=== PATIENT | male | born 1960 ===

== ENCOUNTER → 2018-07-14 | Outpatient (CLI) | payer BC ==
[~2018-07-14] MED LIST: AMOCLA875 PO; ATEN25 PO; AZIT250 PO; BP MED; LISHYD2012; RISE30 PO; SIMV40 PO
== END | disposition home or self-care (01) ==
LOC: PLD 13:24 → LAB SHORT 13:24
DX: D22.5 Melanocytic nevi of trunk (principal); D22.61 Melanocytic nevi of right upper limb, including shoulder; D22.71 Melanocytic nevi of right lower limb, including hip
CPT/HCPCS: 88305

== ENCOUNTER 2019-06-26 19:23 | Emergency (ER) | payer BC ==
[~2019-06-26] VITALS: Ht 188 cm; Wt 147.4 kg
[~2019-06-26 19:23] MED LIST changes: +Adult Low Dose81 MG PO; +Cialis5 MG; +GLUCOSAMINE &1 EACH PO; +Glucophage1000 MG PO; +Hair, Skin & N1 EACH PO; +LISI20 PO; +TESTOSTERONE INJECTI; +Vitamin B Comple1 EA PO
[2019-06-26 19:44] LABS: BASOPHILS ABSOLUTE AUTO 0.02 K/mm3 (0.00-0.23); BASOPHILS PERCENT AUTO 0 % (0-2); EOSINOPHILS ABSOLUTE AUTO 0.24 K/mm3 (0.00-0.68); EOSINOPHILS PERCENT AUTO 3 % (0-6); Hemoglobin 17.1 g/dL (13.5-17.5); IMMATURE GRAN ABSOLUTE AUTO 0.02 K/mm3 (0.00-0.10); IMMATURE GRAN PERCENT AUTO 0 % (0-1); LYMPHOCYTES ABSOLUTE AUTO 1.37 K/mm3 (0.84-5.20); LYMPHOCYTES PERCENT AUTO 16 % (21-46); MONOCYTES ABSOLUTE AUTO 0.99 K/mm3 (0.16-1.47); MONOCYTES PERCENT AUTO 12 % (4-13); Mean Corpuscular HGB 28.5 pg (26.0-34.0); Mean Corpuscular HGB Conc 32.9 g/dL (31.5-36.5); Mean Corpuscular Volume 87 fL (80-100); NEUTROPHILS ABSOLUTE AUTO 5.73 K/mm3 (1.96-9.15); NEUTROPHILS PERCENT AUTO 69 % (41-73); Platelet Count 289 K/mm3 (150-400); RDW Coefficient Variation 13.2 % (11.7-14.2); RDW Standard Deviation 41.4 fL (35.1-46.3); White Blood Cell Count 8.37 K/mm3 (4.00-11.30)
[2019-06-26 20:02] LABS: Alanine Aminotransfer (ALT/SGP 40 U/L (12-78); Albumin, Blood 4.1 g/dL (3.4-5.0); Albumin/Globulin Ratio 1.2 (0.8-1.8); Alk Phos 58 U/L (50-136); Anion Gap 9 mmol/L (6-16); Aspartate Aminotrans (AST/SGOT 20 U/L (12-37); Bilirubin, Total 0.9 mg/dL (0.1-1.0); Blood Urea Nitrogen 17 mg/dL (8-24); Bun/Creatinine Ratio 14.8 (12.0-20.0); CO2, Blood 28 mmol/L (21-32); Chloride, Blood 106 mmol/L (98-108); Creatinine, Blood 1.15 mg/dL (0.60-1.20); Globulin, Blood 3.4 g/dL (2.2-4.0); Glomerular Filtration Rate >60 (60-); Glucose, Blood 84 mg/dL (70-99); Sodium, Blood 143 mmol/L (136-145); Total Protein, Blood 7.5 g/dL (6.4-8.2)
[2019-06-26 20:06] LABS: Source, Urine Clean Catch
[2019-06-26 20:13] LABS: Bilirubin, Urine Neg (Neg); Blood, Urine 5+ (Neg); Glucose Qualitative, Urine Neg (Neg); Ketones, Urine Neg (Neg); Leukocyte Esterase, Urine 1+ (Neg); Nitrite, Urine Neg (Neg); Protein, Urine 1+ (Neg); Urobilinogen, Urine 1+ (Normal)
[2019-06-26 20:22] LABS: Appearance, Urine Hazy (Clear); Color, Urine Yellow (P-Yellow)
[2019-06-26 20:24] LABS: Bacteria Few /hpf; Red Blood Cells, Urine 50-100 /hpf (0-2); Squamous Epithelial Cells Few /hpf (Few)
[2019-06-26] MEDS ORDERED: Zofran4 MG PO (21:41)
[2019-06-26] MEDS ORDERED: HYDR1TAB94 PO (21:41)
[2019-06-26] MEDS ORDERED: KETO10 PO (21:41)
[2019-07-14] MEDS ORDERED: ATOR10 PO (09:04)
== END 2019-06-26 21:57 | disposition home or self-care (01) ==
LOC: ER 19:23
PROVIDERS: Emergency Medicine
DX: N13.2 Hydronephrosis with renal and ureteral calculous obstruction (principal); E11.9 Type 2 diabetes mellitus without complications; I10 Essential (primary) hypertension; Z88.2 Allergy status to sulfonamides; Z79.899 Other long term (current) drug therapy; Z79.82 Long term (current) use of aspirin; Z79.84 Long term (current) use of oral hypoglycemic drugs
CPT/HCPCS: 36415; 74176; 80053; 81001; 83690; 85025; 87077; 87086; 87186; 96361; 96374; 99284-25; A9270; J1885; J7030

== ENCOUNTER → 2019-07-19 | Outpatient (CLI) | payer BC ==
[~2019-07-19] MED LIST changes: +ASPI325EC PO; +ATOR10 PO; +CEFU250T47 PO; +HYDR1TAB94 PO; +KETO10 PO; +OXYC5 PO; +Zofran4 MG PO
[2019-07-19 09:00] LABS: Source, Urine Clean Catch
[2019-07-19 10:10] LABS: Bilirubin, Urine Neg (Neg); Blood, Urine 4+ (Neg); Glucose Qualitative, Urine Neg (Neg); Ketones, Urine Neg (Neg); Leukocyte Esterase, Urine 1+ (Neg); Nitrite, Urine Neg (Neg); Protein, Urine Neg (Neg); Specific Gravity, Urine 1.015 (1.003-1.022); Urobilinogen, Urine NORM (Normal)
[2019-07-19 10:26] LABS: Appearance, Urine Hazy (Clear); Color, Urine Yellow (P-Yellow)
[2019-07-19 10:27] LABS: Bacteria Not Seen /hpf; Squamous Epithelial Cells Not Seen /hpf (Few)
== END | disposition home or self-care (01) ==
LOC: OLS 08:59 → LAB SHORT 08:59
PROVIDERS: Orthopaedic Surgery
DX: N20.0 Calculus of kidney (principal)
CPT/HCPCS: 81001; 87077; 87086; 87186

== ENCOUNTER → 2019-08-01 | Outpatient (CLI) | payer BC ==
[2019-08-01 08:08] LABS: Source, Urine Clean Catch
[2019-08-01 10:01] LABS: Bilirubin, Urine Neg (Neg); Blood, Urine Neg (Neg); Glucose Qualitative, Urine Neg (Neg); Ketones, Urine Neg (Neg); Leukocyte Esterase, Urine Neg (Neg); Nitrite, Urine Neg (Neg); Protein, Urine Neg (Neg); Urobilinogen, Urine NORM (Normal)
[2019-08-01 10:03] LABS: Color, Urine Yellow (P-Yellow)
[2019-08-01 10:04] LABS: Appearance, Urine Clear (Clear)
== END | disposition home or self-care (01) ==
LOC: LAB SHORT 08:07 → OLS 08:07
PROVIDERS: Orthopaedic Surgery
DX: N20.0 Calculus of kidney (principal)
CPT/HCPCS: 81003

== ENCOUNTER → 2019-08-04 | Outpatient (CLI) | payer BC ==
[2019-08-04 16:57] LABS: Source, Urine Clean Catch
[2019-08-04 18:31] LABS: Appearance, Urine Clear (Clear); Bilirubin, Urine Neg (Neg); Blood, Urine Neg (Neg); Color, Urine Yellow (P-Yellow); Glucose Qualitative, Urine Neg (Neg); Ketones, Urine Neg (Neg); Leukocyte Esterase, Urine Neg (Neg); Nitrite, Urine Neg (Neg); Protein, Urine Neg (Neg); Urobilinogen, Urine NORM (Normal)
== END | disposition home or self-care (01) ==
LOC: LAB SHORT 16:56 → OLS 16:56
PROVIDERS: Orthopaedic Surgery
DX: N20.0 Calculus of kidney (principal)
CPT/HCPCS: 81003; 87086

== ENCOUNTER 2019-08-09 08:07 | Day surgery (SDC) | payer BC ==
[~2019-08-09] VITALS: Ht 185.4 cm; Wt 148.6 kg
[~2019-08-09 08:07] MED LIST changes: -ASPI325EC PO; -CEFU250T47 PO; -OXYC5 PO
[2019-08-09] MEDS ORDERED: CEFU250T47 PO (08:30)
--- NOTE | 2019-08-09 16:29 | NUR ---
pt working with therapy at this time
--- NOTE | 2019-08-09 18:04 | NUR ---
SHIFT SUMMARY POD 0 S/P LEFT TKA. A&OX4 WITH VSS. ABLE TO VOID AND TOLERATE REGULAR DIET. WORKED WITH THERAPY THIS AFTERNOON. PAIN CONTROLLED PER EMAR. TEDS, PAS, AND POLAR PAC IN PLACE. FAMILY AT BEDSIDE. PT ASSISTED WITH ADL'S PRN.
--- NOTE | 2019-08-10 04:25 | NUR ---
SHIFT SUMMARY: PT POD #1 FOR LEFT TOTAL KNEE REPAIR. YI WRAP CDI WITH POLAR PACK IN PLACE. PAIN MANAGED WITH 5MG OXY AND SCHED TORADOL AND TYLENOL. PT REPORTING MINIMAL PAIN. AMBULATED BERMUDEZ X2. OOB TO BATHROOM WITH SBA W/FWW+GB. USING CPAP WHEN RESTING. VSS T/O SHIFT. PLAN FOR PHYSICAL THERAPY AND POSSIBLE DISCHARGE.
[2019-08-10 04:49] LABS: BASOPHILS ABSOLUTE AUTO 0.03 K/mm3 (0.00-0.23); BASOPHILS PERCENT AUTO 0 % (0-2); EOSINOPHILS ABSOLUTE AUTO 0.39 K/mm3 (0.00-0.68); EOSINOPHILS PERCENT AUTO 3 % (0-6); Hematocrit 40.7 % (37.0-53.0); Hemoglobin 13.5 g/dL (13.5-17.5); IMMATURE GRAN ABSOLUTE AUTO 0.04 K/mm3 (0.00-0.10); IMMATURE GRAN PERCENT AUTO 0 % (0-1); LYMPHOCYTES ABSOLUTE AUTO 0.97 K/mm3 (0.84-5.20); LYMPHOCYTES PERCENT AUTO 8 % (21-46); MONOCYTES PERCENT AUTO 14 % (4-13); Mean Corpuscular HGB 28.6 pg (26.0-34.0); Mean Corpuscular HGB Conc 33.2 g/dL (31.5-36.5); Mean Corpuscular Volume 86 fL (80-100); NEUTROPHILS PERCENT AUTO 74 % (41-73); Platelet Count 218 K/mm3 (150-400); RDW Coefficient Variation 13.2 % (11.7-14.2); RDW Standard Deviation 40.9 fL (35.1-46.3); Red Blood Cell Count 4.72 M/mm3 (4.30-5.90); White Blood Cell Count 11.73 K/mm3 (4.00-11.30)
[2019-08-10 05:11] LABS: Anion Gap 7 mmol/L (6-16); Blood Urea Nitrogen 23 mg/dL (8-24); Bun/Creatinine Ratio 21.9 (12.0-20.0); CO2, Blood 24 mmol/L (21-32); Calcium, Blood 7.9 mg/dL (8.5-10.1); Chloride, Blood 105 mmol/L (98-108); Creatinine, Blood 1.05 mg/dL (0.60-1.20); Glomerular Filtration Rate >60 (60-); Glucose, Blood 107 mg/dL (70-99); Magnesium, Blood 1.6 mg/dL (1.6-2.4); Potassium, Blood 4.1 mmol/L (3.5-5.5); Sodium, Blood 136 mmol/L (136-145)
--- NOTE | 2019-08-10 08:44 | NUR ---
PT WORKING WITH THERAPY AT THIS TIME. AMBULATING IN HALLWAY IND
--- NOTE | 2019-08-10 13:30 | NUR ---
MIDSHIFT NOTE PT UP IN CHAIR AT THIS TIME. TOLERATING THERAPY AND REGULAR DIET WELL. REPORTS PASSING GAS AND VOIDING W/OUT DIFFICULTY. STATES PAIN IS AT TOLERABLE LEVEL WITH PO MEDICATION AND ICE. /FAMILY AT BEDSIDE T/O SHIFT. WORKED WITH THERAPY AND AMBULATED WITH HOTEL YARDPERSON IN HALLWAY. YI WRAP, POLAR PAC, SCD, AND TEDS IN PLACE. NO DRAINAGE AT THIS TIME. CALL LIGHT WITHIN REACH AND PT DEMONSTRATED APPROPRIATE USE.
[2019-08-10] MEDS ORDERED: ASPI325EC PO (17:37)
[2019-08-10] MEDS ORDERED: OXYC5 PO (17:37)
== END 2019-08-10 17:50 | disposition home or self-care (01) ==
LOC: ORSCMMR 08:07 → ORD 09:30 → SURS 14:21 → ORSCMMR 08-10 17:50 → SURS 08-10 17:50
PROVIDERS: Orthopaedic Surgery
PROC: 0SRD0J9 Replacement of Left Knee Joint with Synthetic Substitute, Cemented, Open Approach (ICD-10-PCS; principal; 2019-08-09 09:30)
DX: M17.12 Unilateral primary osteoarthritis, left knee (principal); I10 Essential (primary) hypertension; G47.33 Obstructive sleep apnea (adult) (pediatric); E78.5 Hyperlipidemia, unspecified; K21.9 Gastro-esophageal reflux disease without esophagitis; E11.40 Type 2 diabetes mellitus with diabetic neuropathy, unspecified; Z79.84 Long term (current) use of oral hypoglycemic drugs; Z79.899 Other long term (current) drug therapy; Z79.82 Long term (current) use of aspirin
CPT/HCPCS: 36415; 73560-LT; 80048; 82947; 83735; 85025; 86850; 86900; 86901; 88300; 94762; 97110; 97116; 97161; 97530; C1713; C1776; J0171; J0690; J0735; J1100; J1885; J2250; J2405; J2704; J2795; J3010; J7120

== ENCOUNTER 2019-10-03 11:26 | Observation (INO) | payer BC ==
[~2019-10-03] VITALS: Ht 188 cm; Wt 135.2 kg
[~2019-10-03 11:26] MED LIST changes: +Aspirin EC81 MG PO; +CEFU250T47 PO; +OXYC5 PO
[2019-10-03 12:14] LABS: BASOPHILS ABSOLUTE AUTO 0.03 K/mm3 (0.00-0.23); BASOPHILS PERCENT AUTO 0 % (0-2); EOSINOPHILS PERCENT AUTO 3 % (0-6); Hematocrit 45.9 % (37.0-53.0); Hemoglobin 14.9 g/dL (13.5-17.5); IMMATURE GRAN ABSOLUTE AUTO 0.02 K/mm3 (0.00-0.10); IMMATURE GRAN PERCENT AUTO 0 % (0-1); LYMPHOCYTES PERCENT AUTO 14 % (21-46); MONOCYTES ABSOLUTE AUTO 0.82 K/mm3 (0.16-1.47); MONOCYTES PERCENT AUTO 11 % (4-13); Mean Corpuscular HGB 28.4 pg (26.0-34.0); Mean Corpuscular HGB Conc 32.5 g/dL (31.5-36.5); Mean Corpuscular Volume 88 fL (80-100); Mean Platelet Volume 10.3 fL (9.1-12.4); NEUTROPHILS ABSOLUTE AUTO 5.54 K/mm3 (1.96-9.15); NEUTROPHILS PERCENT AUTO 72 % (41-73); Platelet Count 308 K/mm3 (150-400); RDW Standard Deviation 44.5 fL (35.1-46.3); Red Blood Cell Count 5.24 M/mm3 (4.30-5.90); White Blood Cell Count 7.71 K/mm3 (4.00-11.30)
[2019-10-03 12:36] LABS: Troponin I <0.015 ng/mL (0.000-0.040)
[2019-10-03 12:47] LABS: Alanine Aminotransfer (ALT/SGP 39 U/L (12-78); Albumin, Blood 4.1 g/dL (3.4-5.0); Albumin/Globulin Ratio 1.2 (0.8-1.8); Alk Phos 65 U/L (50-136); Anion Gap 9 mmol/L (6-16); Aspartate Aminotrans (AST/SGOT 23 U/L (12-37); Bilirubin, Total 0.9 mg/dL (0.1-1.0); Blood Urea Nitrogen 15 mg/dL (8-24); Bun/Creatinine Ratio 20.1 (12.0-20.0); CO2, Blood 24 mmol/L (21-32); Calcium, Blood 9.4 mg/dL (8.5-10.1); Chloride, Blood 108 mmol/L (98-108); Creatinine, Blood 0.75 mg/dL (0.60-1.20); Globulin, Blood 3.5 g/dL (2.2-4.0); Glomerular Filtration Rate >60 (60-); Glucose, Blood 94 mg/dL (70-99); Potassium, Blood 4.1 mmol/L (3.5-5.5); Sodium, Blood 141 mmol/L (136-145); Total Protein, Blood 7.6 g/dL (6.4-8.2)
[2019-10-03] MEDS ORDERED: VITAMIN B-121000 MC2 PO (14:10)
[2019-10-03] MEDS ORDERED: GLUCOSAMINE &1 EACH (17:08)
[2019-10-03] MEDS ORDERED: Depo-Testo100 MG/1 M (17:09)
--- NOTE | 2019-10-03 18:48 | NUR ---
SHIFT SUMMARY PT ARRIVED JUST BEFORE 5PM FROM ER. INDEP IN ROOM, DENIES PAIN. FAMILY AT BEDSIDE, PLEASANT AND COOPERATIVE. AWAITING ORDERS FROM DR MIMS. CALL LIGHT IN REACH, [facility]
--- NOTE | 2019-10-04 03:54 | NUR ---
10/04/19 0300 NPO EXCEPT FOR MEDS AND ICE CHIPS FOR STRESS TEST TODAY. SLEEPING NOW. HEART MONITOR STABLE.
[2019-10-04 05:48] LABS: CHOL/HDL RATIO 4.4; Cholesterol 111 mg/dL (50-200); HDL Cholesterol 25 mg/dL (>39); LDL/HDL RATIO 1.9; Low Density Lipoprotein Chol 46 mg/dL (0-110); Triglycerides 198 mg/dL (30-160); Troponin I <0.015 ng/mL (0.000-0.040); Very Low Density Lipoprot Chol 39 mg/dL (6-32)
--- NOTE | 2019-10-04 07:25 | NUR ---
10/04/19 0600 AWAKE AND SHOWERED. DENIES ANY S/S OR DISCOMFORT. CHEERFUL. VITALS STABLE.
--- NOTE | 2019-10-04 17:40 | NUR ---
SUMMARY PT RESTING IN BED WATCHING TV, PT HAS BEEN INDEPENDENT IN THE ROOM, PLEASANT AND COOPERATIVE T/O THE DAY, FIRST PART OF THE STRESS TEST DONE TODAY, PT JACQUI WELL, SECOND PART WILL BE TOMORROW AROUND NOON, VSS, NO ACUTE CHANGES, WILL CONT TO MONITOR
--- NOTE | 2019-10-05 06:33 | NUR ---
PT denies chest pain or acute distress. On tele NSR with PAC. EF 64% per echo. Finishing cardiac stress test today. Wears CPAP at HS room air baseline
--- NOTE | 2019-10-05 15:49 | NUR ---
SUMMARY/DISCHARGE PT DISCHARGED TO HOME, STRESS TEST NEGATIVE, PT HAS BEEN PLEASANT AND COOPERATIVE WITH CARE T/O THE DAY, INDEPENDENT IN THE ROOM, ONLY MILD TO NO CHEST PAIN, VSS, NO ACUTE CHANGES, DECLINED A WHEELCHAIR, ABLE TO AMBULATE SAFELY TO THE ELEVATOR WITH HIS SPOUSE
== END 2019-10-05 15:45 | disposition home or self-care (01) ==
LOC: ER 11:26 → MEDS 11:27
PROVIDERS: Emergency Medicine; ADMIT Internal Medicine
DX: R07.89 Other chest pain (principal); I10 Essential (primary) hypertension; E78.5 Hyperlipidemia, unspecified; E11.9 Type 2 diabetes mellitus without complications; G47.33 Obstructive sleep apnea (adult) (pediatric); Z99.89 Dependence on other enabling machines and devices; Z96.652 Presence of left artificial knee joint; Z79.82 Long term (current) use of aspirin; Z79.899 Other long term (current) drug therapy; Z88.2 Allergy status to sulfonamides; Z79.84 Long term (current) use of oral hypoglycemic drugs
CPT/HCPCS: 36415; 71046; 78452; 80053; 80061; 82947; 83690; 84484; 85025; 93005; 93010; 93017; 93306; 96372; 99285-25; A9500; G0378; J0706; J1650; J2785

== ENCOUNTER → 2020-08-14 | Outpatient (CLI) | payer BC ==
[~2020-08-14] MED LIST changes: +Depo-Testo100 MG/1 M; +GLUCOSAMINE &1 EACH; +VITAMIN B-121000 MC2 PO
== END | disposition home or self-care (01) ==
LOC: PLD 11:40 → LAB SHORT 11:40
DX: D22.5 Melanocytic nevi of trunk (principal); D22.71 Melanocytic nevi of right lower limb, including hip
CPT/HCPCS: 88305

== ENCOUNTER → 2020-08-21 | Outpatient (CLI) | payer BC | END | disposition home or self-care (01) | LOC: PLD 12:06 → LAB SHORT 12:06 | DX: D22.71 Melanocytic nevi of right lower limb, including hip (principal); D22.5 Melanocytic nevi of trunk | CPT/HCPCS: 88305 ==

== ENCOUNTER 2021-12-18 06:06 | Day surgery (SDC) | payer BC ==
[~2021-12-18] VITALS: Ht 185.4 cm; Wt 144.0 kg
[~2021-12-18 06:06] MED LIST changes: +GINKGO60 MG PO; +GLUCOSAMINE & CHONDR PO; -GLUCOSAMINE &1 EACH
--- NOTE | 2021-12-18 06:45 | NUR ---
PT HERE WITH VILMA. 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 Patient up to Ambulate independently. Gait steady WITH CANE. History, Chart, Medications and Allergies reviewed before start of procedure. Lungs clear T/O to Auscultation. Patient confirms NPO status and agrees with scheduled surgery. Pre-Op teaching done. Pt verbalizes understanding.
--- NOTE | 2021-12-18 18:56 | NUR ---
SHIFT SUMMARY POD0 L RASHAD, A/OX4, VSS, TOLERATING PO, DID WELL WITH PHYSICAL THERAPY, WALKED AN ADDITIONAL TIME IN THE HALLS WITH THIS RN (ESTIMATED 50 FT), PAIN WELL MANAGED WITHOUT PRN NARCOTICS. PT REPORTED HAVING SOME DIFFICULTY WITH VOIDING BUT BEING ABLE TO DO 1 UNMEASURED VOID NEAR END OF SHIFT, DISCUSSED/EDUCATED PT ON IMPORTANCE OF NOT OVERFILLING THE BLADDER AND THE POSSIBILITY OF DOING A BLADDER SCAN TO DETERMINE BLADDER VOLUME. NO ACUTE EVENTS THIS SHIFT, CALL LIGHT IN REACH, WILL CTM AND REPORT TO ONCOMING NOC RN.
[2021-12-19 04:32] LABS: BASOPHILS ABSOLUTE AUTO 0.04 K/mm3 (0.00-0.23); BASOPHILS PERCENT AUTO 0 % (0-2); EOSINOPHILS ABSOLUTE AUTO 0.27 K/mm3 (0.00-0.68); EOSINOPHILS PERCENT AUTO 2 % (0-6); Hematocrit 41.8 % (37.0-53.0); Hemoglobin 13.8 g/dL (13.5-17.5); IMMATURE GRAN ABSOLUTE AUTO 0.04 K/mm3 (0.00-0.10); IMMATURE GRAN PERCENT AUTO 0 % (0-1); LYMPHOCYTES ABSOLUTE AUTO 0.87 K/mm3 (0.84-5.20); LYMPHOCYTES PERCENT AUTO 7 % (21-46); MONOCYTES ABSOLUTE AUTO 1.63 K/mm3 (0.16-1.47); MONOCYTES PERCENT AUTO 14 % (4-13); Mean Corpuscular HGB 28.6 pg (26.0-34.0); Mean Corpuscular Volume 87 fL (80-100); Mean Platelet Volume 10.9 fL (9.1-12.4); NEUTROPHILS ABSOLUTE AUTO 9.22 K/mm3 (1.96-9.15); NEUTROPHILS PERCENT AUTO 77 % (41-73); Platelet Count 219 K/mm3 (150-400); RDW Standard Deviation 40.7 fL (35.1-46.3); Red Blood Cell Count 4.83 M/mm3 (4.30-5.90); White Blood Cell Count 12.07 K/mm3 (4.00-11.30)
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
[2021-12-19 04:57] LABS: Anion Gap 11 mmol/L (6-16); Blood Urea Nitrogen 24 mg/dL (8-24); Bun/Creatinine Ratio 25.2 (12.0-20.0); CO2, Blood 22 mmol/L (21-32); Calcium, Blood 8.6 mg/dL (8.5-10.1); Chloride, Blood 105 mmol/L (98-108); Creatinine, Blood 0.95 mg/dL (0.60-1.20); Glomerular Filtration Rate >60 (60-); Glucose, Blood 118 mg/dL (70-99); Magnesium, Blood 1.8 mg/dL (1.6-2.4); Potassium, Blood 3.7 mmol/L (3.5-5.5); Sodium, Blood 138 mmol/L (136-145)
--- NOTE | 2021-12-19 10:15 | NUR ---
DISCHARGE A7o X4, VSS ON RA, TOLERATING PO INTAKE WELL, VOIDING, DENIES PAIN AT THIS TIME. CLEARED THERAPY & AMBULATING WELL W/ FWW & GB. DISCUSSED DISCHARGE INSTRUCTIONS & HOME MEDS. PT SENT HOME W/ DISCHARGE INSTRUCTIONS, POLAR PACK, & X3 AQUACEL DRSGS. ESCORTED OUT VIA W/C.
== END 2021-12-19 10:31 | disposition home or self-care (01) ==
LOC: ORSCMMR 06:06 → ORD 07:30 → SURS 11:30 → ORSCMMR 12-19 10:31
PROVIDERS: Orthopaedic Surgery
PROC: 0SRB0JA Replacement of Left Hip Joint with Synthetic Substitute, Uncemented, Open Approach (ICD-10-PCS; principal; 2021-12-18 07:30)
PROC: 8E0YXBZ Computer Assisted Procedure of Lower Extremity (ICD-10-PCS; principal; 2021-12-18 07:30)
DX: M16.12 Unilateral primary osteoarthritis, left hip (principal); M87.9 Osteonecrosis, unspecified; I10 Essential (primary) hypertension; G47.33 Obstructive sleep apnea (adult) (pediatric); E11.40 Type 2 diabetes mellitus with diabetic neuropathy, unspecified; E66.01 Morbid (severe) obesity due to excess calories; Z68.41 Body mass index [BMI] 40.0-44.9, adult; Z79.899 Other long term (current) drug therapy; Z79.84 Long term (current) use of oral hypoglycemic drugs; Z79.82 Long term (current) use of aspirin
CPT/HCPCS: 36415; 72170; 80048; 82947; 83735; 85025; 88305; 88311; 97110; 97116; 97162; 97166; 97530; 97535; A9270; C1713; C1776; J0171; J0690; J0735; J1650; J1885; J2250; J2370; J2704; J2795; J3010; J3370; J7050; J7120

== ENCOUNTER 2022-01-03 00:02 | Inpatient (IN) | payer BC ==
[~2022-01-03] VITALS: Ht 185.4 cm; Wt 137.4 kg
[~2022-01-03 00:02] MED LIST changes: +ENOX40I SC
[2022-01-03 00:36] LABS: BASOPHILS ABSOLUTE AUTO 0.05 K/mm3 (0.00-0.23); BASOPHILS PERCENT AUTO 0 % (0-2); EOSINOPHILS ABSOLUTE AUTO 0.56 K/mm3 (0.00-0.68); EOSINOPHILS PERCENT AUTO 5 % (0-6); Hematocrit 40.2 % (37.0-53.0); Hemoglobin 13.3 g/dL (13.5-17.5); IMMATURE GRAN PERCENT AUTO 1 % (0-1); LYMPHOCYTES ABSOLUTE AUTO 1.86 K/mm3 (0.84-5.20); LYMPHOCYTES PERCENT AUTO 16 % (21-46); MONOCYTES ABSOLUTE AUTO 0.94 K/mm3 (0.16-1.47); MONOCYTES PERCENT AUTO 8 % (4-13); Mean Corpuscular HGB Conc 33.1 g/dL (31.5-36.5); Mean Corpuscular Volume 88 fL (80-100); Mean Platelet Volume 9.8 fL (9.1-12.4); NEUTROPHILS PERCENT AUTO 70 % (41-73); Platelet Count 429 K/mm3 (150-400); RDW Standard Deviation 41.4 fL (35.1-46.3); Red Blood Cell Count 4.58 M/mm3 (4.30-5.90); White Blood Cell Count 11.81 K/mm3 (4.00-11.30)
[2022-01-03 00:54] LABS: Alanine Aminotransfer (ALT/SGP 32 U/L (12-78); Albumin, Blood 3.2 g/dL (3.4-5.0); Albumin/Globulin Ratio 0.9 (0.8-1.8); Alk Phos 77 U/L (50-136); Anion Gap 8 mmol/L (6-16); Aspartate Aminotrans (AST/SGOT 12 U/L (12-37); Bilirubin, Total 0.5 mg/dL (0.1-1.0); Blood Urea Nitrogen 24 mg/dL (8-24); Bun/Creatinine Ratio 20.2 (12.0-20.0); CO2, Blood 25 mmol/L (21-32); Calcium, Blood 8.9 mg/dL (8.5-10.1); Chloride, Blood 106 mmol/L (98-108); Creatinine, Blood 1.19 mg/dL (0.60-1.20); Globulin, Blood 3.7 g/dL (2.2-4.0); Glomerular Filtration Rate >60 (60-); Glucose, Blood 154 mg/dL (70-99); Potassium, Blood 4.1 mmol/L (3.5-5.5); Sodium, Blood 139 mmol/L (136-145); Total Protein, Blood 6.9 g/dL (6.4-8.2)
[2022-01-03 02:50] LABS: Source, Urine Voided
[2022-01-03 02:53] LABS: Bilirubin, Urine Neg (Neg); Blood, Urine 1+ (Neg); Glucose Qualitative, Urine Neg (Neg); Ketones, Urine Neg (Neg); Leukocyte Esterase, Urine Neg (Neg); Nitrite, Urine Neg (Neg); Protein, Urine 2+ (Neg); Specific Gravity, Urine 1.015 (1.003-1.022); Urobilinogen, Urine NORM (Normal)
[2022-01-03 03:03] LABS: Appearance, Urine Clear (Clear); Color, Urine Yellow (P-Yellow)
[2022-01-03 03:05] LABS: Bacteria Not Seen /hpf; Red Blood Cells, Urine 0-2 /hpf (0-2); Squamous Epithelial Cells Rare /hpf (Few); White Blood Cells, Urine Rare /hpf (0-5)
[2022-01-03 05:03] LABS: BASOPHILS ABSOLUTE AUTO 0.05 K/mm3 (0.00-0.23); BASOPHILS PERCENT AUTO 0 % (0-2); EOSINOPHILS ABSOLUTE AUTO 0.29 K/mm3 (0.00-0.68); EOSINOPHILS PERCENT AUTO 2 % (0-6); Hematocrit 38.3 % (37.0-53.0); Hemoglobin 12.6 g/dL (13.5-17.5); IMMATURE GRAN ABSOLUTE AUTO 0.14 K/mm3 (0.00-0.10); IMMATURE GRAN PERCENT AUTO 1 % (0-1); LYMPHOCYTES ABSOLUTE AUTO 1.12 K/mm3 (0.84-5.20); LYMPHOCYTES PERCENT AUTO 6 % (21-46); MONOCYTES ABSOLUTE AUTO 0.97 K/mm3 (0.16-1.47); MONOCYTES PERCENT AUTO 6 % (4-13); Mean Corpuscular HGB Conc 32.9 g/dL (31.5-36.5); Mean Corpuscular Volume 88 fL (80-100); NEUTROPHILS ABSOLUTE AUTO 14.91 K/mm3 (1.96-9.15); NEUTROPHILS PERCENT AUTO 85 % (41-73); Platelet Count 392 K/mm3 (150-400); RDW Coefficient Variation 12.9 % (11.7-14.2); RDW Standard Deviation 41.9 fL (35.1-46.3); Red Blood Cell Count 4.35 M/mm3 (4.30-5.90); White Blood Cell Count 17.48 K/mm3 (4.00-11.30)
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
[2022-01-03 05:31] LABS: Alanine Aminotransfer (ALT/SGP 33 U/L (12-78); Albumin, Blood 3.1 g/dL (3.4-5.0); Albumin/Globulin Ratio 0.9 (0.8-1.8); Alk Phos 77 U/L (50-136); Anion Gap 8 mmol/L (6-16); Aspartate Aminotrans (AST/SGOT 26 U/L (12-37); Bilirubin, Total 0.6 mg/dL (0.1-1.0); Blood Urea Nitrogen 24 mg/dL (8-24); Bun/Creatinine Ratio 21.6 (12.0-20.0); CO2, Blood 24 mmol/L (21-32); Calcium, Blood 8.8 mg/dL (8.5-10.1); Chloride, Blood 107 mmol/L (98-108); Creatinine, Blood 1.11 mg/dL (0.60-1.20); Globulin, Blood 3.4 g/dL (2.2-4.0); Glomerular Filtration Rate >60 (60-); Glucose, Blood 118 mg/dL (70-99); Potassium, Blood 4.6 mmol/L (3.5-5.5); Sodium, Blood 139 mmol/L (136-145); Total Protein, Blood 6.5 g/dL (6.4-8.2)
[2022-01-03 09:58] LABS: Hemoglobin 11.5 g/dL (13.5-17.5)
[2022-01-03 13:07] LABS: Hematocrit 35.2 % (37.0-53.0); Hemoglobin 11.5 g/dL (13.5-17.5)
--- NOTE | 2022-01-03 14:28 | NUR ---
Responding to a Pt. spiritual care request. Pt. was awake in bed. Pt welcomes my visit. Spouse is present. Pt. is pleasant and verbalizes he has no spiritual care concerns. Pt. and spouse verbalize gratitude for the spiritual care visit.
--- NOTE | 2022-01-03 15:18 | NUR ---
SHIFT SUMMARY: ABD HEMOTOMA PATIENT IS ALERT AND ORIENTED X4. VS ARE WNL AND IS ON RA. PAIN IS MANAGED WITH IV MORPHINE AT THIS TIME AND WILL TRY PILLS ONCE PATIENT HAS DINNER. PATIENT IS BARKEEP ON THE ABD WITH MOVEMENT AND PAIN CAN GO UP TO HIS SHOULDER AT TIMES BUT PAIN IS MANAGED. HE IS VOIDING AND IS A SBA WITH FWW AND GAIT BELT TO THE BATHROOM. IS AT BEDSIDE. CALL LIGHT WITHIN REACH. THE PLAN IS FOR HIM TO BE DISCHARGED TOMORROW IF APPROPRIATE.
--- NOTE | 2022-01-04 05:00 | NUR ---
SHIFT SUMMARY A/O X4. IND IN RM. NO PAIN THROUGHOUT SHIFT. VOIDING AND TOLERATING PO INTAKE. NO ACUTE CHANGES THROUGHOUT THE SHIFT. WILL CONTINUE TO MONITOR.
--- NOTE | 2022-01-04 07:47 | NUR ---
recvd report from previous shift RN, pt lying in bed, a/o x 4, pleasant/cooperaive, denies need for pain medication, requests to be left alone with door closed to sleep until breakfast, bed in lowest position, bed rails up x 2, call light within reach.
--- NOTE | 2022-01-04 09:31 | NUR ---
PT'S IN ROOM WITH PT
--- NOTE | 2022-01-04 11:10 | NUR ---
PROVIDED PT AND SPOUSE WITH DISCHARGE INSRUCTIONS AND EDUCATON. PT'S SPOUSE TRANSPORTED PT'S BELONGINGS TO AWAITING VEHICLE. PT TRANSFERRED TO AWAITING VEHICLE VIA WHEELCHAIR. PERIPHERAL IV REMOVED WNL. PT AND SPOUSE STATE UNDERSTANDING OF INSTRUCTIONS.
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
== END 2022-01-04 11:30 | disposition home or self-care (01) | DRG 871 ==
LOC: ER 00:02 → SURS 03:51 → ER 05:06 → SURS 05:19
PROVIDERS: Emergency Medicine; Family Medicine; ADMIT Internal Medicine
DX: A41.9 Sepsis, unspecified organism (principal); K66.1 Hemoperitoneum; D62 Acute posthemorrhagic anemia; I10 Essential (primary) hypertension; I95.89 Other hypotension; T45.515A Adverse effect of anticoagulants, initial encounter; D72.829 Elevated white blood cell count, unspecified; Z53.29 Procedure and treatment not carried out because of patient's decision for other reasons; E11.9 Type 2 diabetes mellitus without complications; E78.5 Hyperlipidemia, unspecified; G47.33 Obstructive sleep apnea (adult) (pediatric); Z96.652 Presence of left artificial knee joint; Z96.642 Presence of left artificial hip joint; Z90.49 Acquired absence of other specified parts of digestive tract; Z88.2 Allergy status to sulfonamides; Z79.84 Long term (current) use of oral hypoglycemic drugs; Z79.899 Other long term (current) drug therapy; Z98.890 Other specified postprocedural states
CPT/HCPCS: 36415; 71260; 74177; 78226; 80053; 81001; 82947; 83605; 83690; 84484; 85014; 85018; 85025; 87040; 93005; 93010; 96374; 97162; 97530; 99285-25; A9270; A9537; J0696; J1170; J2270; J2405; J7030; Q9967

== ENCOUNTER 2024-07-19 12:51 | Emergency (ER) | payer BC, MEDICARE ==
[~2024-07-19] VITALS: Ht 185.4 cm; Wt 147.4 kg
[~2024-07-19 12:51] MED LIST changes: +ASPI81CH PO
[2024-07-19 12:56] VITALS: BP 141/106
[2024-07-19] MEDS ORDERED: Ondansetron HCl 2 MG / ML 2ML Vial IV PRN (13:00)
[2024-07-19 13:21] LABS: BASOPHILS ABSOLUTE AUTO 0.03 K/mm3 (0.00-0.23); BASOPHILS PERCENT AUTO 0 % (0-2); EOSINOPHILS ABSOLUTE AUTO 0.36 K/mm3 (0.00-0.68); EOSINOPHILS PERCENT AUTO 3 % (0-6); Hemoglobin 19.2 g/dL (13.5-17.5); IMMATURE GRAN ABSOLUTE AUTO 0.11 K/mm3 (0.00-0.10); IMMATURE GRAN PERCENT AUTO 1 % (0-1); LYMPHOCYTES ABSOLUTE AUTO 1.42 K/mm3 (0.84-5.20); LYMPHOCYTES PERCENT AUTO 12 % (21-46); MONOCYTES ABSOLUTE AUTO 1.08 K/mm3 (0.16-1.47); MONOCYTES PERCENT AUTO 9 % (4-13); Mean Corpuscular HGB 29.1 pg (26.0-34.0); Mean Corpuscular HGB Conc 33.6 g/dL (31.5-36.5); Mean Corpuscular Volume 87 fL (80-100); Mean Platelet Volume 10.1 fL (9.1-12.4); NEUTROPHILS ABSOLUTE AUTO 9.29 K/mm3 (1.96-9.15); NEUTROPHILS PERCENT AUTO 76 % (41-73); Platelet Count 268 K/mm3 (150-400); RDW Coefficient Variation 13.9 % (11.7-14.2); RDW Standard Deviation 41.7 fL (35.1-46.3); White Blood Cell Count 12.29 K/mm3 (4.00-11.30)
[2024-07-19 13:29] LABS: Hematocrit 57.1 % (37.0-53.0)
[2024-07-19 13:45] LABS: Albumin, Blood 4.2 g/dL (3.4-5.0); Albumin/Globulin Ratio 1.2 (0.8-1.8); Bilirubin, Total 0.9 mg/dL (0.1-1.0); Bun/Creatinine Ratio 20.6 (12.0-20.0); Calcium, Blood 9.6 mg/dL (8.5-10.1); Creatinine, Blood 0.92 mg/dL (0.60-1.20); Globulin, Blood 3.6 g/dL (2.2-4.0); Potassium, Blood 4.1 mmol/L (3.5-5.5); Total Protein, Blood 7.8 g/dL (6.4-8.2)
[2024-07-19] MEDS ORDERED: NS 1,000 ML IV SCH (14:05)
[2024-07-19 14:10] LABS: International Normalized Ratio 0.91; Prothrombin Time Results 9.8 Sec (9.7-11.5)
[2024-07-19 17:17] LABS: Hematocrit 50.3 % (37.0-53.0); Hemoglobin 17.1 g/dL (13.5-17.5)
== END 2024-07-19 18:38 | disposition home or self-care (01) ==
LOC: ER 12:51
PROVIDERS: Emergency Medicine; Student in an Organized Health Care Education/Training Program
DX: K92.2 Gastrointestinal hemorrhage, unspecified (principal); E11.9 Type 2 diabetes mellitus without complications; I10 Essential (primary) hypertension; E78.5 Hyperlipidemia, unspecified; G47.33 Obstructive sleep apnea (adult) (pediatric); Z79.84 Long term (current) use of oral hypoglycemic drugs; Z79.82 Long term (current) use of aspirin; Z79.899 Other long term (current) drug therapy; Z88.2 Allergy status to sulfonamides
CPT/HCPCS: 74177; 80053; 85014; 85018; 85025; 85610; 85730; 86850; 86900; 86901; 99285-25; J7030; Q9967

== ENCOUNTER 2024-07-20 11:31 | Emergency (ER) | payer BC, MEDICARE ==
[~2024-07-20] VITALS: Ht 185.4 cm; Wt 113.4 kg
[2024-07-20 12:02] LABS: BASOPHILS ABSOLUTE AUTO 0.03 K/mm3 (0.00-0.23); BASOPHILS PERCENT AUTO 0 % (0-2); EOSINOPHILS ABSOLUTE AUTO 0.28 K/mm3 (0.00-0.68); EOSINOPHILS PERCENT AUTO 3 % (0-6); Hematocrit 49.1 % (37.0-53.0); Hemoglobin 16.7 g/dL (13.5-17.5); IMMATURE GRAN ABSOLUTE AUTO 0.03 K/mm3 (0.00-0.10); IMMATURE GRAN PERCENT AUTO 0 % (0-1); LYMPHOCYTES ABSOLUTE AUTO 1.58 K/mm3 (0.84-5.20); LYMPHOCYTES PERCENT AUTO 19 % (21-46); MONOCYTES ABSOLUTE AUTO 0.76 K/mm3 (0.16-1.47); MONOCYTES PERCENT AUTO 9 % (4-13); Mean Corpuscular HGB 29.4 pg (26.0-34.0); Mean Corpuscular Volume 86 fL (80-100); NEUTROPHILS ABSOLUTE AUTO 5.48 K/mm3 (1.96-9.15); NEUTROPHILS PERCENT AUTO 67 % (41-73); Platelet Count 240 K/mm3 (150-400); RDW Coefficient Variation 13.4 % (11.7-14.2); RDW Standard Deviation 42.9 fL (35.1-46.3); Red Blood Cell Count 5.68 M/mm3 (4.30-5.90); White Blood Cell Count 8.16 K/mm3 (4.00-11.30)
[2024-07-20 13:32] LABS: Albumin, Blood 3.6 g/dL (3.4-5.0); Albumin/Globulin Ratio 1.2 (0.8-1.8); Bilirubin, Total 0.8 mg/dL (0.1-1.0); Bun/Creatinine Ratio 22.4 (12.0-20.0); Calcium, Blood 8.7 mg/dL (8.5-10.1); Creatinine, Blood 0.85 mg/dL (0.60-1.20); Globulin, Blood 3.1 g/dL (2.2-4.0); Potassium, Blood 4.3 mmol/L (3.5-5.5); Total Protein, Blood 6.7 g/dL (6.4-8.2)
[2024-07-20 14:30] VITALS: BP 152/88
== END 2024-07-20 14:46 | disposition home or self-care (01) ==
LOC: ER 11:31
PROVIDERS: Physician Assistant
DX: K62.5 Hemorrhage of anus and rectum (principal); E11.9 Type 2 diabetes mellitus without complications; I10 Essential (primary) hypertension; E78.5 Hyperlipidemia, unspecified; G47.33 Obstructive sleep apnea (adult) (pediatric); Z79.82 Long term (current) use of aspirin; Z79.84 Long term (current) use of oral hypoglycemic drugs; Z88.2 Allergy status to sulfonamides
CPT/HCPCS: 80053; 85025; 86850; 86900; 86901; 93005; 93010; 99285-25

== ENCOUNTER 2024-12-13 09:36 | Day surgery (SDC) | payer BC ==
[~2024-12-13] VITALS: Ht 185.4 cm; Wt 150.3 kg
[~2024-12-13 09:36] MED LIST changes: +Lactated Ringer's 1,000 ML IV ONE
[2024-12-13] MEDS ORDERED: FISH OIL 1,2001 EAC4 PO (09:58)
[2024-12-13] MEDS ORDERED: TERB250 PO (10:00)
[2024-12-13] MEDS ORDERED: Lactated Ringer's 1,000 ML IV ONE (10:03)
[2024-12-13] MEDS ORDERED: propofoL 40 ML IV ONE (11:00)
[2024-12-13] MEDS ORDERED: propofoL 20 ML IV ONE (11:10)
[2024-12-13 12:00] VITALS: BP 123/72
--- NOTE | 2024-12-13 12:06 | NUR ---
12/13/24 1206 Abhilash Weiss GIVEN DIVERTICULOSIS INFO PACKET
== END 2024-12-13 12:14 | disposition home or self-care (01) ==
LOC: ORSCSDS 09:36
PROVIDERS: Internal Medicine Gastroenterology
PROC: 0DBM8ZX Excision of Descending Colon, Via Natural or Artificial Opening Endoscopic, Diagnostic (ICD-10-PCS; principal; 2024-12-13 11:00)
PROC: 0DBL8ZX Excision of Transverse Colon, Via Natural or Artificial Opening Endoscopic, Diagnostic (ICD-10-PCS; principal; 2024-12-13 11:00)
PROC: 0DBP8ZX Excision of Rectum, Via Natural or Artificial Opening Endoscopic, Diagnostic (ICD-10-PCS; principal; 2024-12-13 11:00)
PROC: 0DBH8ZX Excision of Cecum, Via Natural or Artificial Opening Endoscopic, Diagnostic (ICD-10-PCS; principal; 2024-12-13 11:00)
PROC: 0DBK8ZX Excision of Ascending Colon, Via Natural or Artificial Opening Endoscopic, Diagnostic (ICD-10-PCS; principal; 2024-12-13 11:00)
DX: K62.5 Hemorrhage of anus and rectum (principal); D12.3 Benign neoplasm of transverse colon; K63.5 Polyp of colon; R19.7 Diarrhea, unspecified; K64.8 Other hemorrhoids; K57.30 Diverticulosis of large intestine without perforation or abscess without bleeding; I10 Essential (primary) hypertension; E11.9 Type 2 diabetes mellitus without complications; K21.9 Gastro-esophageal reflux disease without esophagitis; G47.33 Obstructive sleep apnea (adult) (pediatric); Z79.899 Other long term (current) drug therapy; Z86.0101 Personal history of adenomatous and serrated colon polyps; E78.5 Hyperlipidemia, unspecified; K76.0 Fatty (change of) liver, not elsewhere classified; E66.01 Morbid (severe) obesity due to excess calories; Z68.41 Body mass index [BMI] 40.0-44.9, adult; Z79.84 Long term (current) use of oral hypoglycemic drugs
CPT/HCPCS: 82947; 88305; J2704; J7120